=== PATIENT | male | born 1970 | race Hispanic/Latino ===

== ENCOUNTER 2019-03-06 08:28 | Outpatient (CLI) | payer BC ==
--- NOTE | 2019-03-06 08:51 | RAD ---
3 views left fifth finger: 03/06/2019 COMPARISON: None HISTORY: Injury, trauma, pain FINDINGS: There is fifth finger soft tissue swelling, mild and diffuse. There is a punctate calcific density at the base of the fifth middle phalanx laterally which could represent soft tissue calcification or less likely, a punctate fracture. No displaced fracture. No evidence for dislocation . IMPRESSION: Punctate calcification at the lateral base of the fifth middle phalanx as above.
== END 2019-03-06 08:29 | disposition home or self-care (01) ==
LOC: BICRAD 08:28
PROVIDERS: ATTEND Physician Assistant Medical
DX: S69.90XA Unspecified injury of unspecified wrist, hand and finger(s), initial encounter (principal); M25.842 Other specified joint disorders, left hand